=== PATIENT | male | born 1995 | race Caucasian/White ===

== ENCOUNTER 2023-08-08 17:56 | Emergency (ER) | payer MEDICAID ==
[~2023-08-08] VITALS: Ht 170.2 cm; Wt 74.8 kg
[2023-08-08 18:37] VITALS: BP 134/71; PULSE 74; RESP 20; TEMP 98.3; O2SAT 96
[2023-08-08] MEDS ORDERED: cefTRIAXone 500 MG in LIDOCAINE MPF 1% 1 ML IM ONE (19:30)
[2023-08-08] MEDS ORDERED: LIDOCAINE MPF 1% 5 ML ONE (19:47)
[2023-08-08] MEDS ORDERED: cefTRIAXone 500 MG VIAL ONE (19:47)
[2023-08-08] MEDS ORDERED: DOXY-690 PO (20:06)
[2023-08-08] MEDS ORDERED: ACYC400T14 PO (20:06)
[2023-08-08 20:49] LABS: APPEARANCE,URINE CLEAR (CLEAR); BILIRUBIN,URINE NEGATIVE (NEGATIVE); BLOOD, URINE NEGATIVE (NEGATIVE); COLOR,URINE YELLOW (YELLOW); LEUKOCYTE ESTERASE ,URINE NEGATIVE (NEGATIVE); NITRITE, URINE NEGATIVE (NEGATIVE); PROTEIN,URINE NEGATIVE (NEGATIVE); UGLUCOSE NEGATIVE (NEGATIVE); UROBILINOGEN,URINE 0.2 EU/dL (0.2 - 1)
== END 2023-08-08 20:17 | disposition home or self-care (01) ==
LOC: MED 17:56
DX: N48.29 Other inflammatory disorders of penis (principal); Z79.899 Other long term (current) drug therapy
CPT/HCPCS: 81003; 87491; 96372; 99283; J0696; J2001

== ENCOUNTER 2024-05-03 22:23 | Inpatient (IN) | payer MEDICAID ==
[~2024-05-03] VITALS: Ht 170.2 cm; Wt 74.8 kg
[~2024-05-03 22:23] MED LIST: ACYC400T14 PO; DOXY-690 PO
[2024-05-03 22:58] VITALS: BP 116/63; PULSE 75; RESP 18; TEMP 97.9; O2SAT 98
[2024-05-03] MEDS: KETOROLAC 30 MG/ML VIAL IM ONE (23:58)
[2024-05-04 00:13] LABS: BASOPHILS % (AUTO) 0.2 % (0.0-2.0); EOSINOPHILS # (AUTO) 0.1 K/uL (0-0.4); EOSINOPHILS % (AUTO) 0.5 % (0.0-4.0); HEMATOCRIT 37.7 % (36-52); HEMOGLOBIN 12.9 g/dL (12.0-18.0); LYMPHOCYTES % (AUTO) 7.6 % (20.5-51.1); MEAN CORPUSCULAR HEMOGLOBIN 30 pg (27-31); MEAN CORPUSCULAR HGB CONC 34 g/dL (33-37); MONOCYTES # (AUTO) 0.9 K/uL (0.8-1.0); MONOCYTES % (AUTO) 6.4 % (1.7-9.3); NEUTROPHILS # (AUTO) 11.4 K/uL (1.8-7.7); NEUTROPHILS % (AUTO) 85.3 % (42.2-75.2); PLATELET COUNT (AUTO) 188 K/uL (140-450); RED BLOOD CELL COUNT(AUTO) 4.29 MIL/uL (4.20-6.10); RED CELL DISTRIBUTION WIDTH 12.8 % (11.6-13.7); WHITE BLOOD COUNT (AUTO) 13.4 K/uL (4.8-10.8)
[2024-05-04 00:25] LABS: CALCIUM 8.8 mg/dL (8.5-10.1); CARBON DIOXIDE 31.7 mmol/L (21-32); POTASSIUM 3.7 mmol/L (3.5-5.1)
[2024-05-04 00:27] LABS: ALBUMIN 3.9 g/dL (3.4-5.0); BILIRUBIN,DIRECT 0.1 mg/dL (0.0-0.3); TOTAL BILIRUBIN 0.7 mg/dL (0.0-1.0); TOTAL PROTEIN, SERUM 6.6 g/dL (6.4-8.2)
[2024-05-04 00:43] LABS: APPEARANCE,URINE CLEAR (CLEAR); BILIRUBIN,URINE 1+ (NEGATIVE); BLOOD, URINE NEGATIVE (NEGATIVE); COLOR,URINE YELLOW (YELLOW); LEUKOCYTE ESTERASE ,URINE NEGATIVE (NEGATIVE); NITRITE, URINE NEGATIVE (NEGATIVE); PROTEIN,URINE NEGATIVE (NEGATIVE); UGLUCOSE NEGATIVE (NEGATIVE); UROBILINOGEN,URINE 0.2 EU/dL (0.2 - 1)
[2024-05-04 00:57] LABS: ICTOTEST POSITIVE (NEGATIVE)
[2024-05-04] MEDS ORDERED: PIPERACILLIN/TAZOBACTAM 3.375 GM VIAL IV ONE (01:51)
[2024-05-04] MEDS: ONDANSETRON 4 MG/2 ML VIAL IVP PRN (02:07)
[2024-05-04] MEDS: MORPHINE SULFATE 2 MG/ML SYR IVP PRN (02:10)
[2024-05-04] MEDS: PIPERACILLIN/TAZOBACTAM 3.375 GM in DEXTROSE 5% 50 ML IV ONE (02:12)
[2024-05-04] MEDS: LACTATED RINGERS 1,000 ML IV SCH ×2 (02:14→13:10)
[2024-05-04 03:25] VITALS: PULSE 56; RESP 17; O2SAT 98
[2024-05-04 03:52] VITALS: PULSE 56; RESP 17; O2SAT 98
[2024-05-04 04:00] VITALS: BP 94/53; PULSE 56; RESP 18; TEMP 97.2; O2SAT 98
[2024-05-04 08:06] LABS: BASOPHILS % (AUTO) 0.4 % (0.0-2.0); EOSINOPHILS # (AUTO) 0.1 K/uL (0-0.4); EOSINOPHILS % (AUTO) 1.5 % (0.0-4.0); HEMATOCRIT 35.9 % (36-52); HEMOGLOBIN 12.3 g/dL (12.0-18.0); LYMPHOCYTES # (AUTO) 1.5 K/uL (2.0-11.5); LYMPHOCYTES % (AUTO) 15.4 % (20.5-51.1); MEAN CORPUSCULAR HEMOGLOBIN 30 pg (27-31); MEAN CORPUSCULAR HGB CONC 34 g/dL (33-37); MEAN CORPUSCULAR VOLUME 88.5 fL (80-94); MONOCYTES # (AUTO) 0.6 K/uL (0.8-1.0); MONOCYTES % (AUTO) 6.2 % (1.7-9.3); NEUTROPHILS # (AUTO) 7.5 K/uL (1.8-7.7); NEUTROPHILS % (AUTO) 76.5 % (42.2-75.2); PLATELET COUNT (AUTO) 178 K/uL (140-450); RED BLOOD CELL COUNT(AUTO) 4.06 MIL/uL (4.20-6.10); RED CELL DISTRIBUTION WIDTH 12.8 % (11.6-13.7); WHITE BLOOD COUNT (AUTO) 9.8 K/uL (4.8-10.8)
[2024-05-04 08:24] LABS: MAGNESIUM 1.9 mg/dL (1.8-2.4); PHOSPHORUS 4.3 mg/dL (2.5-4.9)
[2024-05-04 08:44] LABS: ANION GAP 7.3 (8-16); CALCIUM 8.4 mg/dL (8.5-10.1); CARBON DIOXIDE 31.3 mmol/L (21-32); POTASSIUM 3.6 mmol/L (3.5-5.1)
[2024-05-04] MEDS: PIPERACILLIN/TAZOBACTAM 3.375 GM in DEXTROSE 5% 50 ML IV SCH (09:04)
[2024-05-04] MEDS ORDERED: SEVOFLURANE 250 ML BTL INH ONE (11:30)
[2024-05-04] MEDS: BUPIVACAINE-MPF 0.25% 30 ML VIAL INJ ONE (11:30)
[2024-05-04] MEDS: MIDAZOLAM 2 MG/2 ML VIAL ONE (11:44)
[2024-05-04] MEDS: fentaNYL citrate 0.05 MG/ML VIAL ONE (11:44)
[2024-05-04] MEDS: PROPOFOL 200 MG/20 ML VIAL IV ONE (11:55)
[2024-05-04] MEDS: KETOROLAC 30 MG/ML VIAL ONE (11:56)
[2024-05-04] MEDS: SUCCINYLCHOLINE CHLORIDE 200 MG/10 ML VIAL IVP ONE (11:56)
[2024-05-04] MEDS: LIDOCAINE MPF 2% 100 MG/5 ML VIAL INJ ONE (11:56)
[2024-05-04] MEDS: ROCURONIUM 50 MG/5 ML VIAL IV ONE (11:56)
[2024-05-04] MEDS: ONDANSETRON 4 MG/2 ML VIAL ONE (11:56)
[2024-05-04] MEDS: METOCLOPRAMIDE 10 MG/2 ML INJ VIAL ONE (11:56)
[2024-05-04] MEDS: NEOSTIGMINE 1:1000 10 MG/10 ML VIAL ONE (13:06)
[2024-05-04] MEDS: GLYCOPYRROLATE 0.2 MG/ML VIAL ONE ×2 (13:07)
[2024-05-04] MEDS ORDERED: diphenhydrAMINE 50 MG/ML VIAL IVP PRN (13:10)
[2024-05-04] MEDS ORDERED: MEPERIDINE 25 MG/ML SYR IVP PRN (13:10)
[2024-05-04] MEDS ORDERED: ONDANSETRON 4 MG/2 ML VIAL IVP PRN (13:10)
[2024-05-04] MEDS: HYDROmorphone 1 MG/ML AMP IVP PRN (13:50)
[2024-05-04] MEDS: HYDROmorphone PFS 2 MG/ML SYR ONE (14:35)
[2024-05-04 16:00] VITALS: BP 105/55; PULSE 56; RESP 18; TEMP 98; O2SAT 97
[2024-05-04 20:00] VITALS: PULSE 63; RESP 18; O2SAT 96
[2024-05-05] VITALS: BP 100/36; PULSE 63; RESP 18; TEMP 97.7; O2SAT 96
[2024-05-05 06:59] LABS: BASOPHILS % (AUTO) 0.5 % (0.0-2.0); EOSINOPHILS # (AUTO) 0.2 K/uL (0-0.4); EOSINOPHILS % (AUTO) 2.2 % (0.0-4.0); HEMATOCRIT 34.8 % (36-52); HEMOGLOBIN 12.1 g/dL (12.0-18.0); LYMPHOCYTES # (AUTO) 1.2 K/uL (2.0-11.5); LYMPHOCYTES % (AUTO) 16.7 % (20.5-51.1); MEAN CORPUSCULAR HEMOGLOBIN 31 pg (27-31); MEAN CORPUSCULAR HGB CONC 35 g/dL (33-37); MEAN CORPUSCULAR VOLUME 88.4 fL (80-94); MONOCYTES # (AUTO) 0.5 K/uL (0.8-1.0); MONOCYTES % (AUTO) 7.5 % (1.7-9.3); NEUTROPHILS # (AUTO) 5.1 K/uL (1.8-7.7); NEUTROPHILS % (AUTO) 73.1 % (42.2-75.2); PLATELET COUNT (AUTO) 174 K/uL (140-450); RED BLOOD CELL COUNT(AUTO) 3.93 MIL/uL (4.20-6.10); RED CELL DISTRIBUTION WIDTH 12.7 % (11.6-13.7); WHITE BLOOD COUNT (AUTO) 6.9 K/uL (4.8-10.8)
[2024-05-05 07:11] LABS: ANION GAP 9.4 (8-16); CALCIUM 8.2 mg/dL (8.5-10.1); CARBON DIOXIDE 29.2 mmol/L (21-32); POTASSIUM 3.6 mmol/L (3.5-5.1)
[2024-05-05] MEDS ORDERED: AMOX1TAB7 PO (10:51)
[2024-05-05] MEDS ORDERED: IBUP-2213 PO (10:51)
[2024-05-05 12:35] VITALS: BP 110/65; PULSE 70
== END 2024-05-05 14:35 | disposition home or self-care (01) | DRG 234 ==
LOC: MED 22:23 → MMU 05-04 01:40 → MTU 05-04 02:20
PROVIDERS: ADMIT Student in an Organized Health Care Education/Training Program; ATTEND Student in an Organized Health Care Education/Training Program
PROC: 0DTJ4ZZ Resection of Appendix, Percutaneous Endoscopic Approach (ICD-10-PCS; principal; 2024-05-04 11:30)
DX: K35.80 Unspecified acute appendicitis (principal); Z79.899 Other long term (current) drug therapy; Z88.8 Allergy status to other drugs, medicaments and biological substances
CPT/HCPCS: 36415; 80048; 80076; 81003; 83605; 83690; 83735; 84100; 85025; 87040; 87081; 96365; 96372; 96375; 99291; J0330; J1171; J1885; J2003; J2250; J2270; J2405; J2543; J2704; J2710; J2765; J3010; J3490; J7030; J7060

== ENCOUNTER 2024-05-21 15:57 | Emergency (ER) | payer MEDICAID ==
[~2024-05-21] VITALS: Ht 165.1 cm; Wt 68.0 kg
[~2024-05-21 15:57] MED LIST changes: -ACYC400T14 PO; +AMOX1TAB7 PO; -DOXY-690 PO; +IBUP-2213 PO
[2024-05-21 16:01] VITALS: BP 122/67; PULSE 67; RESP 18; TEMP 98; O2SAT 98
[2024-05-21 17:40] LABS: APPEARANCE,URINE CLEAR (CLEAR); BILIRUBIN,URINE NEGATIVE (NEGATIVE); BLOOD, URINE NEGATIVE (NEGATIVE); COLOR,URINE BROWN (YELLOW); LEUKOCYTE ESTERASE ,URINE NEGATIVE (NEGATIVE); NITRITE, URINE NEGATIVE (NEGATIVE); PROTEIN,URINE NEGATIVE (NEGATIVE); UGLUCOSE NEGATIVE (NEGATIVE); UROBILINOGEN,URINE 0.2 EU/dL (0.2 - 1)
[2024-05-21 17:44] LABS: ALBUMIN 4.1 g/dL (3.4-5.0); ANION GAP 11.1 (8-16); CALCIUM 8.9 mg/dL (8.5-10.1); CARBON DIOXIDE 30.7 mmol/L (21-32); POTASSIUM 3.8 mmol/L (3.5-5.1); TOTAL BILIRUBIN 0.9 mg/dL (0.0-1.0); TOTAL PROTEIN, SERUM 7.2 g/dL (6.4-8.2)
[2024-05-21 18:53] LABS: BASOPHILS # (AUTO) 0.1 K/uL (0.00-0.22); EOSINOPHILS # (AUTO) 0.1 K/uL (0-0.4); EOSINOPHILS % (AUTO) 0.8 % (0.0-4.0); HEMATOCRIT 41.4 % (36-52); LYMPHOCYTES # (AUTO) 1.1 K/uL (2.0-11.5); LYMPHOCYTES % (AUTO) 16.2 % (20.5-51.1); MEAN CORPUSCULAR HEMOGLOBIN 30 pg (27-31); MEAN CORPUSCULAR HGB CONC 34 g/dL (33-37); MEAN CORPUSCULAR VOLUME 87.7 fL (80-94); MONOCYTES # (AUTO) 0.4 K/uL (0.8-1.0); MONOCYTES % (AUTO) 5.3 % (1.7-9.3); NEUTROPHILS # (AUTO) 5.2 K/uL (1.8-7.7); NEUTROPHILS % (AUTO) 76.7 % (42.2-75.2); PLATELET COUNT (AUTO) 235 K/uL (140-450); RED BLOOD CELL COUNT(AUTO) 4.72 MIL/uL (4.20-6.10); RED CELL DISTRIBUTION WIDTH 12.7 % (11.6-13.7); WHITE BLOOD COUNT (AUTO) 6.7 K/uL (4.8-10.8)
[2024-05-21 19:04] VITALS: BP 106/55; PULSE 52; RESP 20; TEMP 98; O2SAT 98
== END 2024-05-21 19:04 | disposition home or self-care (01) ==
LOC: MED 15:57
DX: R10.31 Right lower quadrant pain (principal); R10.11 Right upper quadrant pain; R10.30 Lower abdominal pain, unspecified; Z90.49 Acquired absence of other specified parts of digestive tract; Z79.899 Other long term (current) drug therapy
CPT/HCPCS: 36415; 80053; 81003; 83690; 85025; 99285